=== PATIENT | male | born 1980 | race African-American/Black ===

== ENCOUNTER 2024-12-10 13:18 | Emergency (ER) | payer OTHER ==
[~2024-12-10] VITALS: Ht 175.3 cm; Wt 64.0 kg
[2024-12-10 13:25] VITALS: BP 119/84; PULSE 98; RESP 18; TEMP 36.7; O2SAT 99
[2024-12-10] MEDS ORDERED: ACET-2708 MT (15:14)
[2024-12-10] MEDS ORDERED: IBUP-2029 MT (15:16)
[2024-12-10] MEDS ORDERED: AMOX1TAB16 MT (15:16)
== END 2024-12-10 15:32 | disposition home or self-care (01) ==
LOC: ER 13:18
DX: S00.10XA Contusion of unspecified eyelid and periocular area, initial encounter (principal); Z98.890 Other specified postprocedural states; Z79.899 Other long term (current) drug therapy; Y08.89XA Assault by other specified means, initial encounter; Y93.89 Activity, other specified; Y92.89 Other specified places as the place of occurrence of the external cause; Y99.8 Other external cause status
CPT/HCPCS: 99283